=== PATIENT | female | born 2000 | race Caucasian/White ===

== ENCOUNTER 2025-05-10 17:46 | Emergency (ER) | payer BC ==
[~2025-05-10] VITALS: Ht 167.6 cm; Wt 91.6 kg
[2025-05-10] MEDS ORDERED: SODIUM CHLORIDE 0.9% 1,000 ML IV ONE (17:55)
[2025-05-10] MEDS ORDERED: Metoclopramide Hydrochloride 10 MG/2 ML VIAL IV ONE (17:55)
[2025-05-10] MEDS ORDERED: diphenhydrAMINE hydrochloride 50 MG/ML VIAL IV ONE (17:55)
[2025-05-10 18:19] LABS: MEAN CELL VOLUME 86.8 fl (81.0-99.0); MEAN CORPUSCULAR HGB 29.1 pg (27.0-31.0); MEAN PLATELET VOLUME 10.0 fl (9.6-12.3); NUCLEATED RED BLOOD CELL 0.0 % (0.0-0.0); NUCLEATED RED BLOOD CELL 0.0 10*3/uL (0.0-0.0); PLATELET COUNT AUTOMATED 149 10*3/uL (130-400); RED CELL DISTRI WIDTH 11.9 % (0-14.5)
[2025-05-10 18:24] LABS: MANUAL DIFF REFLEX YES
[2025-05-10 18:45] LABS: PLATELET SUFFICIENCY NORMAL (NORMAL)
[2025-05-10 18:46] LABS: BUN 6 mg/dl (9-23)
[2025-05-10] MEDS ORDERED: IBU800 M2 PO ×2 (19:21→19:40)
[2025-05-10] MEDS ORDERED: REGLAN10 M1 PO ×2 (19:21→19:40)
== END 2025-05-10 19:48 | disposition home or self-care (01) ==
LOC: ED 17:46
PROVIDERS: Emergency Medicine
DX: R55 Syncope and collapse (principal); R51.9 Headache, unspecified; R53.1 Weakness